=== PATIENT | male | born 1995 | race African-American/Black ===

== ENCOUNTER 2017-03-23 21:45 | Emergency (ER) | payer BC, OTHER ==
--- NOTE | ~2017-03-23 | CR142 ---
[facility]. [facility] A Service of [facility] & [facility] RADIOLOGY TEXT RESULTS PATIENT: JASMINA TRACEY LOCATION: SED : 95 UNIT #: [id number] AGE: [address]: Saúl Maldonado MD SEX: M ORDER DR: [id number] [place] [id number] MR#: [id number] Acc #: [id number] NAME: JASMINA TRACEY : 1995 SEX: M STUDY DATE/TIME: 03/23/2017 22:29 UNIT: SED ROOM: STUDY DESCRIPTION: CR Hand Min 3 Views Rt Attending Physician: Saúl Maldonado M.D. Ordering Physician: Saúl Maldonado M.D. Primary Care Physician: Avni Santiago M.D. MEDICAL IMAGING REPORT This report is preliminary unless electronic signature is present. EXAM Right hand, 3 views HISTORY Hand pain after laceration on glass today. FINDINGS Three views of the right hand demonstrate soft tissue gas at the base of the thumb, along its ulnar margin, compatible with soft tissue laceration. No fracture. No opaque soft tissue foreign body. Bone alignment is normal. No abnormal sclerosis. IMPRESSION 1. No fracture. 2. Small amount of soft tissue gas along the base of the thumb, along its ulnar margin, corresponding to soft tissue injury. Dictated by... Clifton Elias M.D. THIS IS AN ELECTRONICALLY VERIFIED REPORT Clifton Elias M.D. at 03/24/2017 11:10 PM DFL/psc TD: 03/24/2017 02:37 JOB #: [id number] MEDICAL IMAGING REPORT Page 1 of 1
== END 2017-03-23 23:33 | disposition home or self-care (01) ==
LOC: SED 21:45
DX: S61.411A Laceration without foreign body of right hand, initial encounter (principal); Z23 Encounter for immunization; W26.8XXA Contact with other sharp object(s), not elsewhere classified, initial encounter; Y92.009 Unspecified place in unspecified non-institutional (private) residence as the place of occurrence of the external cause
CPT/HCPCS: 73130; 90471; 90715; 99283